=== PATIENT | female | born 1995 | race Caucasian/White ===

== ENCOUNTER 2018-02-16 21:22 | Emergency (ER) | payer MEDICAID, OTHER ==
[~2018-02-16] VITALS: Ht 154.9 cm; Wt 48.1 kg
[~2018-02-16 21:22] MED LIST: ESCI10TA PO; LAMO25TA52 PO
[2018-02-16] MEDS ORDERED: KETAMINE 50 MG/ML, 10ML ONE (22:05)
[2018-02-16 23:44] VITALS: BP 118/62
== END 2018-02-16 23:54 | disposition home or self-care (01) ==
LOC: ED 23:43
DX: S52.501A Unspecified fracture of the lower end of right radius, initial encounter for closed fracture (principal); V00.138A Other skateboard accident, initial encounter; Y93.21 Activity, ice skating; Y92.410 Unspecified street and highway as the place of occurrence of the external cause; Y99.9 Unspecified external cause status
CPT/HCPCS: 25605; 99152; 99285

== ENCOUNTER 2019-05-03 03:45 | Emergency (ER) | payer MEDICAID ==
[~2019-05-03] VITALS: Ht 157.5 cm; Wt 47.0 kg
[2019-05-03 03:48] VITALS: BP 135/85
[2019-05-03] MEDS ORDERED: LIDOCAINE-MPF 1%, 5ML INFIL ONE (04:00)
== END 2019-05-03 04:51 | disposition home or self-care (01) ==
LOC: ED 04:45
DX: L05.01 Pilonidal cyst with abscess (principal)
CPT/HCPCS: 10080

== ENCOUNTER 2019-05-03 08:29 | Emergency (ER) | payer MEDICAID ==
[~2019-05-03] VITALS: Ht 154.9 cm; Wt 46.6 kg
[2019-05-03 08:31] VITALS: BP 120/76
[2019-05-03] MEDS ORDERED: LIDOCAINE 2% VISCOUS 15 ML UDC ONE ×2 (08:55→09:00)
--- NOTE | 2019-05-03 08:57 | NUR ---
Patient from triage ambulatory, was here this morning had an abcess drained and packed. Patient reports pain was really high when her mom moved the bandage. NAD noted, AA&Ox4.
[2019-05-03] MEDS ORDERED: LIDOCAINE 2%,20 ML JEL.PF.APP MM ONE (08:58)
[2019-05-03] MEDS ORDERED: LIDOCAINE 2% VISCOUS, 100ML MM ONE (09:00)
[2019-05-03] MEDS ORDERED: LIDOCAINE-MPF 1%, 5ML ONE (09:08)
--- NOTE | 2019-05-03 09:27 | NUR ---
PA medicated patient and repacked the wound. Educated patient and MOP on dressing changes. Both verbalized understanding.
[2019-05-03] MEDS ORDERED: LIDOCAINE-MPF 1%, 5ML INFIL ONE (09:30)
--- NOTE | 2019-05-03 09:58 | NUR ---
CARE FOR DC ONLY PROVIDED. PT DRESSED AND AMB IN ROOM. NO IV TO DC. REVIEWED DC INSTRUCTIONS WITH PT, INCLUDING INSTRUCTIONS ON ALTERNITING TYLENOL WITH IBUPROFEN EVERY 4 HOURS, UNDERSTANDING VERBALIZED. PT LEFT AMB, GAIT STEADY.
== END 2019-05-03 10:01 | disposition home or self-care (01) ==
LOC: ED 08:52
DX: L05.01 Pilonidal cyst with abscess (principal); Z88.5 Allergy status to narcotic agent; Z88.0 Allergy status to penicillin
CPT/HCPCS: 99283

== ENCOUNTER 2019-05-05 10:42 | Emergency (ER) | payer MEDICAID ==
[~2019-05-05] VITALS: Ht 154.9 cm; Wt 46.5 kg
[2019-05-05 10:49] VITALS: BP 96/69
--- NOTE | 2019-05-05 10:58 | NUR ---
THIS IS A 24 YO FEMALE COMING IN FOR RECHECK NAD POSSIBLE REPACK AND BANDAGE OF CYST ON TAILBONE THAT WAS I&D TWO DAYS AGO AT [facility].
== END 2019-05-05 11:40 | disposition home or self-care (01) ==
LOC: ED 11:10
DX: L05.01 Pilonidal cyst with abscess (principal); F17.200 Nicotine dependence, unspecified, uncomplicated
CPT/HCPCS: 99283

== ENCOUNTER 2020-07-25 03:12 | Emergency (ER) | payer MEDICAID ==
[~2020-07-25] VITALS: Ht 154.9 cm; Wt 49.8 kg
[~2020-07-25 03:12] MED LIST changes: -ESCI10TA PO; +ESCI10TA5 PO
[2020-07-25 03:16] VITALS: BP 121/67
--- NOTE | 2020-07-25 03:20 | NUR ---
pt ambulated to the room. isn't talking as the pain in her throat is too much, per pt. she types on her phone. to meghna pt, and she is cooperative and calm, on o2 sat monitor.
[2020-07-25] MEDS ORDERED: DEXAMETHASONE 4 MG TABLET PO ONE (03:30)
[2020-07-25] MEDS ORDERED: IBUPROFEN 200 MG TABLET PO ONE (03:30)
[2020-07-25] MEDS ORDERED: IBUPROFEN 200 MG TABLET ONE (03:40)
[2020-07-25] MEDS ORDERED: DEXAMETHASONE 4 MG TABLET ONE (03:40)
--- NOTE | 2020-07-25 03:50 | NUR ---
pt medicated per MD orders. tolerated well with difficulty swallowing related to the pain in throat. No respiratory distress, tolerated medications, and good aeration and oxygenation.
== END 2020-07-25 03:52 | disposition home or self-care (01) ==
LOC: ED 03:42
DX: J02.0 Streptococcal pharyngitis (principal); F17.210 Nicotine dependence, cigarettes, uncomplicated
CPT/HCPCS: 99283